=== PATIENT | male | born 1990 | race Two or more races ===

== ENCOUNTER 2023-07-29 17:36 | Emergency (ER) | payer MEDICAID, OTHER ==
[~2023-07-29] VITALS: Ht 175.3 cm; Wt 78.0 kg
[2023-07-29 17:52] VITALS: BP 124/79; PULSE 77; RESP 16; TEMP 99.8; O2SAT 98
[2023-07-29] MEDS ORDERED: AMOX875T4 PO (21:06)
[2023-07-29] MEDS ORDERED: IBUP-1456 PO (21:06)
[2023-07-29] MEDS: cefTRIAXone SOD 1,000 MG VL IM ONE (21:25)
== END 2023-07-29 21:31 | disposition home or self-care (01) ==
LOC: ER 17:36
DX: H66.91 Otitis media, unspecified, right ear (principal); Z79.899 Other long term (current) drug therapy
CPT/HCPCS: 96372; 99283; J0696

== ENCOUNTER 2024-12-30 16:48 | Emergency (ER) | payer MEDICAID, OTHER ==
[~2024-12-30] VITALS: Ht 175.3 cm; Wt 71.8 kg
[~2024-12-30 16:48] MED LIST: AMOX875T4 PO; IBUP-1456 PO
[2024-12-30 16:49] VITALS: TEMP 98.2
[2024-12-30 17:05] VITALS: PULSE 84; RESP 20; O2SAT 97
--- NOTE | 2024-12-30 17:32 | ED.PDOC ---
HPI Comments 34 y/o M, presents to the ED for CC of laceration to the anterior right forearm that occurred proximally 1/2 hour prior to arrival.. Patient reports, that he accidently cut his right-forearm on his car window today (12/30/24); bleeding is controlled at this time. Upon arrival to the ED, patient has a vasovagal episode and was transferred to ED bed 08 for further care. Patient admits to methamphetamine usage as of this morning (12/30/24) denies other illicit drug usage. Vital signs were stable. Chief Complaint: Laceration Time Seen by MD: 17:25 Primary Care Provider: UNKNOWN Reviewed Notes: Nurses Notes, Medications, Allergies Allergies: Coded Allergies: NO KNOWN ALLERGIES (Unverified , 07/29/23) Home Meds Active Scripts Ibuprofen (Ibuprofen) 800 Mg Tab, 1 TAB PO TID PRN, #30 TAB 0 Refills Prov:YURY DAMON 07/29/23 Amoxicillin & Pot Clavulanate (Amoxicillin/Potassium Cla) 875 Mg Tab, 1 TAB PO BID for 7 Days, #14 TAB 0 Refills Prov:YURY DAMON 07/29/23 Information Source: Patient Mode of Arrival: Ambulatory Severity: Moderate Severity of Laceration: Controlled Bleeding Complexity: Simple Timing: Minutes Prehospital treatment: None Laceration Location: Arm (right forearm) Mechanism: Glass Laceration Length (cm): 4 Skin Type: Linear Depth of Injury: Skin, Mucosa Tendon Injury: 0% Capillary Refill: < 3 seconds Tender: Mild Discharge: Bloody Associated Signs and Symptoms: Bleeding Past Medical History PAST MEDICAL HISTORY: Denies Surgical History: Denies all surgeries Family History Family History: Unknown Social History Smoker: Non-Smoker Alcohol: Denies ETOH Use Drugs: Methamphetamine Lives In: Home Constitutional: denies: chills, diaphoresis, fatigue, fever, malaise, sweats, weakness, others EENTM: denies: blurred vision, double vision, ear bleeding, ear discharge, ear drainage, ear pain, ear ringing, eye pain, eye redness, hearing loss, mouth pain, mouth swelling, nasal discharge, nose bleeding, nose congestion, nose pain, photophobia, tearing, throat pain, throat swelling, voice changes, others Respiratory: denies: cough, hemoptysis, orthopnea, SOB at rest, shortness of breath, SOB with excertion, stridor, wheezing, others Cardiovascular: denies: chest pain, dizzy spells, diaphoresis, Dyspnea on exertion, edema, irregular heart beat, left arm pain, lightheadedness, palpitations, PND, syncope, others Gastrointestinal: denies: abdomen distended, abdominal pain, blood streaked bowels, constipated, diarrhea, dysphagia, difficulty swallowing, hematemesis, melena, nausea, poor appetite, poor fluid intake, rectal bleeding, rectal pain, vomiting, others Genitourinary: denies: burning, dysuria, flank pain, frequency, hematuria, incontinence, penile discharge, penile sore, pain, testicle pain, testicle swelling, urgency, others Neurological: denies: dizziness, fainting, headache, left sided numbness, left sided weakness, numbness, paresthesia, pre-existing deficit, right sided numbness, right sided weakness, seizure, speech problems, tingling, tremors, weakness, others Musculoskeletal: denies: back pain, gout, joint pain, joint swelling, muscle pain, muscle stiffness, neck pain, others Integumetry: reports: laceration (right forearm); denies: bruises, change in color, change in hair/nails, dryness, lesions, lumps, rash, wounds, others Allergic/Immunocompromised: denies: Difficulty Healing, Frequent Infections, Hives, Itching, others Hematologic/Lymphatic: denies: anemia, blood clots, easy bleeding, easy bruising, swollen glands, others Endocrine: denies: excessive hunger, excessive sweating, excessive thirst, excessive urination, flushing, intolerance to cold, intolerance to heat, unexplained weight gain, unexplained weight loss, others Psychiatric: denies: anxiety, bipolar disorder, depression, hopeless, panic disorder, schizophrenia, sleepless, suicidal, others All Other Systems: Reviewed and Negative Physical Exam General Appearance: Mild Distress (Patient had anxiety related to the laceration concern.), Normal HEENT: Normal ENT Inspection, Pharynx Normal, TMs Normal Neck: Full Range of Motion, Non-Tender, Normal, Normal Inspection Respiratory: Chest Non-Tender, Lungs Clear, No Accessory Muscle Use, No Respiratory Distress, Normal Breath Sounds Cardiovascular: No Edema, No JVD, No Murmur, No Gallop, Normal Peripheral Pulses, Regular Rate/Rhythm Breast Exam: Deferred Gastrointestinal: No Organomegaly, Non Tender, No Pulsatile Mass, Normal Bowel Sounds, Soft Genitalia: Deferred Pelvic: Deferred Rectal: Deferred Extremities: No calf tenderness, Normal inspection, Non-tender Neurologic: Alert Cerebellar Function: NOT DONE Reflexes: NOT DONE Skin: Lacerations (4 cm horizontal laceration noted to the anterior aspect of the right medial forearm. Bleeding is controlled. No tendon or muscle involvement.) Lymphatic: No Adenopathy Was a procedure done? Was a procedure done?: Yes Sedation Sedation?: No Other Procedure Notes 4 cc of 1% lidocaine was utilized for local anesthesia. Sterile field was placed. Copious irrigation performed. Eight 5-0 Ethilon sutures were utilized in a simple interrupted fashion to close the 4 cm laceration to the anterior right forearm. Minimal blood loss. Patient tolerated procedure well. Clean dressing applied. Differential diagnosis Generic Laceration: Laceration X-Ray, Labs, Meds, VS Vital Signs Date Time Temp Pulse Resp B/P (MAP) Pulse Ox O2 Delivery O2 Flow Rate FiO2 12/30/24 17:05 84 20 97 Room Air* 0 21 12/30/24 17:05 84 20 107/58 (74) 97 12/30/24 16:49 98.2 57 18 89/36 98 98.2 Current Medications Medications (Trade) Dose Ordered Sig/Christi Route Start Time Stop Time Status Last Admin Lidocaine HCl (Xylocaine 1%) 10 ml ONCE ONCE ID 12/30/24 17:30 12/30/24 17:31 DC 12/30/24 17:37 X-Ray, Labs, Meds, VS Comment Patient tolerated procedure well. Advised patient utilize antibiotics as directed. Patient needs to return to ED or primary care provider in 10 days for re-evaluation and probable suture removal. Time of 1ST Reevaluation: 17:50 Reevaluation 1ST: Improved Consultation: PCP Patient Education/Counseling: Diagnosis, Treatment Family Education/Counseling: Diagnosis, Treatment, No Family Present Departure 1 Departure Time of Disposition: 17:50 Impression: Primary Impression: Forearm laceration Disposition: HOME / SELF CARE / HOMELESS Condition: Stable Additional Instructions: Advise utilizing antibiotics as directed until completion. Pain medication as needed. Return to ED or primary care provider in 10 days for re-evaluation and probable suture removal. e-Prescriptions Ibuprofen Micronized (Ibuprofen) 800 Mg Tab 800 MG PO Q8HP PRN, #20 TAB Prov: ABBY ORTEGA PAC 12/30/24 Cephalexin (KEFLEX CAPSULE) 250 Mg Cp 1 CAP PO QID for 7 Days, #28 CAP Prov: ABBY ORTEGA PAC 12/30/24 Discharged With: Self, Friend Critical Care Note Critical Care Time?: No Stability Stability form required: No Heart Score Heart Score: Heart Score Response (Comments) Value History N/A 0 EKG N/A 0 Age N/A 0 Risk Factors N/A 0 Troponin N/A 0 Total 0 I personally scribed for ABBY ORTEGA PAC ([email or web address]) on 12/30/24 at 17:32. Electronically submitted by Marie Ramos ([email or web address]). ABBY ORTEGA PAC Dec 30, 2024 17:32
[2024-12-30] MEDS: LIDOCAINE 1% HCL (LOCAL ANESTH.) INJ 20ML MDV ID ONE (17:37)
[2024-12-30] MEDS: TETANUS-DIPTH-ACEL PERTUSSIS 0.5ML SYR Tdap IM ONE (17:51)
[2024-12-30] MEDS ORDERED: IBUP-1455 PO (17:52)
[2024-12-30] MEDS ORDERED: CEPH250C PO (17:52)
[2024-12-30 18:07] VITALS: BP 113/15; PULSE 79; RESP 18; O2SAT 100
== END 2024-12-30 18:08 | disposition home or self-care (01) ==
LOC: ER 16:48
DX: S51.811A Laceration without foreign body of right forearm, initial encounter (principal); F19.90 Other psychoactive substance use, unspecified, uncomplicated; Z79.899 Other long term (current) drug therapy; W26.8XXA Contact with other sharp object(s), not elsewhere classified, initial encounter; Y93.89 Activity, other specified; Y92.89 Other specified places as the place of occurrence of the external cause; Y99.8 Other external cause status
CPT/HCPCS: 12002; 90471; 90715; 99283; J2003